=== PATIENT | male | born 1970 | race Caucasian/White ===

== ENCOUNTER 2016-10-08 07:31 | Emergency (ER) | payer OTHER ==
[2016-10-08 07:51] VITALS: BP 126/80
--- NOTE | 2016-10-08 08:04 | UC ---
Skin Complaint HPI - HPI Summary HPI Summary: painful blistering rash on right buttock and right upper inner thigh. For 2d. [place], tender. Mild malaise. Did have chicken pox as child. - History of Current Complaint Chief Complaint: UCRash Time Seen by Provider: 10/08/16 07:53 Stated Complaint: RASH Hx Obtained From: Patient Onset/Duration: Gradual Onset, Lasting Days - 2 Timing: Constant Onset Severity: Moderate Current Severity: Moderate Character: Pain, Redness, Raised Aggravating: Touch Alleviating: OTC Meds - MOtrin helps Associated Signs & Symptoms: Positive: Tenderness - Allergy/Home Medications Allergies/Adverse Reactions: Allergies Allergy/AdvReac Type Severity Reaction Status Date / Time No Known Allergies Allergy Verified 10/08/16 07:46 Home Medications: Home Medications Hydrocortisone 1% CREAM* [Hytone Cream 1%*] 1 applic TOPICAL Q3H PRN 10/08/16 [ History Confirmed 10/08/16] Ibuprofen TAB* [Advil TAB*] 400 mg PO Q4H PRN 10/08/16 [History Confirmed ] Review of Systems Constitutional: Fatigue Skin: Rash Eyes: Negative ENT: Negative Respiratory: Negative Cardiovascular: Negative Gastrointestinal: Negative Genitourinary: Negative Motor: Negative Neurovascular: Negative Musculoskeletal: Myalgia Neurological: Negative Psychological: Negative All Other Systems Reviewed And Are Negative: Yes PMH/Surg Hx/FS Hx/Imm Hx Previously Healthy: Yes - Surgical History Surgical History: None - Family History Known Family History: Positive: Hypertension - Social History Occupation: Employed Full-time Lives: With Family Alcohol Use: Occasionally Substance Use Type: Marijuana Smoking Status (MU): Former Smoker Type: Cigarettes Amount Used/How Often: 1/2 PPD Length of Time of Smoking/Using Tobacco: 18 Years Have You Smoked in the Last Year: No When Did the Patient Quit Smoking/Using Tobacco: 2006 - Immunization History Most Recent Influenza Vaccination: Not the 2015/2016 [facility] Physical Exam Triage Information Reviewed: Yes Appearance: Well-Appearing, No Pain Distress, Well-Nourished Vital Signs: Initial Vital Signs Temp 97.7 F 10/08/16 07:45 Pulse 68 10/08/16 07:45 Resp 16 10/08/16 07:45 BP 126/80 10/08/16 07:45 Pulse Ox 99 10/08/16 07:45 Vital Signs Reviewed: Yes Eye Exam: Normal Neck exam: Normal Respiratory Exam: Normal Cardiovascular Exam: Normal Musculoskeletal Exam: Normal Neurological Exam: Normal Psychological Exam: Normal Skin Exam: Other - blistering rash right buttock, a few satellite lesions on upper inner thigh on right. Tender. Course/Dx - Differential Diagnoses - Skin Complaint Differential Diagnoses: Cellulitis, Tinea, Varicella Zoster - Diagnoses Provider Diagnoses: shingles Discharge - Discharge Plan Condition: Stable Disposition: HOME Prescriptions: HYDROcodone/ACETAMIN 5-325 MG* [Delevan 5-325 TAB*] 1 - 2 tab PO Q6H PRN #20 tab MDD 6 tab PRN Reason: Pain ValACYclovir (*) [Valtrex 1 GM(*)] 1 gm PO TID #21 tab Patient Education Materials: Shingles (ED)
== END 2016-10-08 08:15 | disposition home or self-care (01) ==
LOC: UCCORT 07:31
DX: B02.9 Zoster without complications (principal); F12.90 Cannabis use, unspecified, uncomplicated; Z87.891 Personal history of nicotine dependence
CPT/HCPCS: 99202; G0463